=== PATIENT | female | born 1985 | race Caucasian/White ===

== ENCOUNTER 2016-12-13 06:50 | Inpatient (IN) | payer OTHER ==
[~2016-12-13] VITALS: Ht 160 cm; Wt 78.0 kg
--- NOTE | ~2016-12-13 | OR ---
PATIENT'S NAME: VARGHESE CHAVEZ [facility] AGE: 31 [address] ROOM: [address] [address] LOCATION: GOBS ADMIT DATE: 12/13/2016 OR/Procedure Report DISCHARGE DATE: 12/15/2016 FAMILY PHYSICIAN: Huong Seo MD ATTENDING PHYSICIAN: Jhoana Ware SURGEON: Jhoana Ware MD CENTRAL SUPPLY TECHNICIAN: DATE OF PROCEDURE: 12/13/2016 This is a 31-year-old 3, para 2-0-0-2, who presents at 40 weeks' gestation for labor induction. Cytotec 25 mcg was placed, and she was 2 cm dilated. Following this, Cytotec 4 hours later, Pitocin was begun and reached a maximum of 15 milliunits per minute. She progressed to 2-3 cm and a labor epidural was placed. Following the labor epidural, she was 4 cm. I was able to rupture her membranes. There was clear fluid. She rapidly dilated to complete and pushed through 2 contractions. There were some early decelerations while she was going to complete; otherwise, heart tones were stable and reassuring. She pushed and delivered spontaneously. She delivered the vertex. Posterior shoulder was trying to deliver first. This was delivered followed by hand anteriorly. Baby boy was delivered easily. He was placed on maternal abdomen. He let out a spontaneous cry. Received Apgars of 8 and 9 and weighed 7 pounds 12 ounces. His cord was doubly clamped and cut. He was handed off to the warmer. A three-vessel cord was noted. Placenta delivered spontaneous and intact. Cervix and vagina were intact. Periurethral regions were intact. Sponge and needle counts were correct. The patient tolerated the procedure well. She and her baby boy are doing well in recovery. JHOANA WARE MD KHP/theresel /[id number] d: 12/14/16 0054 t: 12/31/16 0909, OPERATIVE SUMMARY
[~2016-12-13 06:50] MED LIST: OSCAL + D500 MG PO; PRENATAL 1+1)(P1 TAB PO
[2016-12-13 07:45] LABS: BASOPHIL # 0.1 K/uL (0.0-0.2); BASOPHIL % 0.5 %; EOSINOPHIL # 0.2 K/uL (0.0-0.5); EOSINOPHIL % 1.8 %; HEMATOCRIT 36.7 % (33.0-46.0); HEMOGLOBIN 12.7 g/dL (11.0-15.0); IMMATURE GRANULOCYTE # 0.1 K/uL (0.0-0.3); IMMATURE GRANULOCYTE % 0.5 %; LYMPHOCYTE # 1.5 K/uL (0.8-4.0); LYMPHOCYTE % 15.1 %; MCH 31.4 pg (27.0-34.0); MCHC 34.6 gm/dL (32.0-36.5); MCV 90.6 fl (83.0-98.0); MONOCYTE # 0.7 K/uL (0.0-1.0); MPV 9.8 fl (9.4-12.4); NEUTROPHIL # (ANC) 7.2 K/uL (1.8-7.8); NEUTROPHIL % 75.1 %; NRBC % 0 /100WBC (0-0.00); PLATELET COUNT 304 K/uL (150-450); RBC 4.05 M/uL (3.50-5.00); RDW-CV 13.5 % (11.9-14.6); WBC 9.7 K/uL (4.0-11.0)
--- NOTE | 2016-12-13 17:46 | NUR ---
Last VS: T:97.8 P:86 R: 16 BP: 109/62 Pain rating: . Last pain med: Epidural 1445 Medicated at: Effective: FHT: Dilatation: 8 Effacement %: 100 Station: 0 Significant event: VE AT 1745. ROOM SET UP W/ 10 SPONGES AND 2 NEEDLES ON TABLE. 500MLS UP IN LR, 850MLS UP IN PITOCIN. PLAN SKIN TO SKIN AFTER DELIVERY. CORCORAN DRNG CLEAR YELLOW URINE
--- NOTE | 2016-12-14 04:14 | NUR ---
VSS, Motrin last given at 0400. Fundus firm, 1 below, small flow
[2016-12-14 05:50] LABS: BASOPHIL # 0.1 K/uL (0.0-0.2); BASOPHIL % 0.4 %; EOSINOPHIL # 0.2 K/uL (0.0-0.5); EOSINOPHIL % 1.4 %; HEMATOCRIT 35.1 % (33.0-46.0); HEMOGLOBIN 12.1 g/dL (11.0-15.0); IMMATURE GRANULOCYTE # 0.1 K/uL (0.0-0.3); IMMATURE GRANULOCYTE % 0.7 %; LYMPHOCYTE # 1.8 K/uL (0.8-4.0); LYMPHOCYTE % 12.1 %; MCH 31.4 pg (27.0-34.0); MCHC 34.5 gm/dL (32.0-36.5); MCV 91.2 fl (83.0-98.0); MONOCYTE # 1.4 K/uL (0.0-1.0); MONOCYTE % 9.4 %; MPV 9.8 fl (9.4-12.4); NEUTROPHIL # (ANC) 11.2 K/uL (1.8-7.8); NRBC % 0 /100WBC (0-0.00); PLATELET COUNT 262 K/uL (150-450); RBC 3.85 M/uL (3.50-5.00); RDW-CV 13.6 % (11.9-14.6); WBC 14.7 K/uL (4.0-11.0)
[2016-12-15] MEDS ORDERED: MOTRIN800 MG PO (09:06)
[2016-12-15] MEDS ORDERED: PERCOCET 5-3251 EACH PO (09:06)
== END 2016-12-15 12:20 | disposition disaster alternative care site (69) | DRG 775 ==
LOC: GOBM 06:50 → GOBS 06:50 → GOBM 10:19 → GOBS 10:19
PROVIDERS: ADMIT Obstetrics & Gynecology
PROC: 10E0XZZ Delivery of Products of Conception, External Approach (ICD-10-PCS; principal; 2016-12-13)
PROC: 3E0P7GC Introduction of Other Therapeutic Substance into Female Reproductive, Via Natural or Artificial Opening (ICD-10-PCS; principal; 2016-12-13)
PROC: 3E033VJ Introduction of Other Hormone into Peripheral Vein, Percutaneous Approach (ICD-10-PCS; principal; 2016-12-13)
PROC: 10907ZC Drainage of Amniotic Fluid, Therapeutic from Products of Conception, Via Natural or Artificial Opening (ICD-10-PCS; principal; 2016-12-13)
DX: O48.0 Post-term pregnancy (principal); O76 Abnormality in fetal heart rate and rhythm complicating labor and delivery; Z3A.40 40 weeks gestation of pregnancy; Z37.0 Single live birth
CPT/HCPCS: J2001; J2590; J3010; J7120